=== PATIENT | female | born 1955 | race Caucasian/White ===

== ENCOUNTER 2018-01-20 07:23 | Day surgery (SDC) | payer MEDICAID ==
[~2018-01-20] VITALS: Ht 154.9 cm; Wt 92.5 kg
[~2018-01-20 07:23] MED LIST: CIME400T PO; LEVO50TA8 PO
[2018-01-20] MEDS ORDERED: POVIDONE-IODINE 10% TOPICAL SOLN 240ML TOP ONE (07:30)
[2018-01-20] MEDS ORDERED: CIPROFLOXACIN 0.3% OPHTH SOLN 2.5ML LEFTEYE ONE (07:30)
[2018-01-20] MEDS ORDERED: LACTATED RINGERS 1,000 ML IV SCH (08:40)
[2018-01-20] MEDS ORDERED: METHYLPREDNISOLONE SOD SUCC 40 MG/ML VIAL ONE (09:22)
[2018-01-20] MEDS ORDERED: TOBRAMYCIN SULFATE 80MG/2ML 30ML ONE (09:22)
[2018-01-20] MEDS ORDERED: PROPOFOL 200MG/20ML VIAL IV ONE (09:48)
[2018-01-20] MEDS ORDERED: MIDAZOLAM HCL 2 MG/2 ML VIAL ONE (09:48)
[2018-01-20] MEDS ORDERED: SUCCINYLCHOLINE CHLORIDE 200MG/10ML VIAL IV ONE (09:52)
[2018-01-20] MEDS ORDERED: ACETAMINOPHEN 325MG TABLET PO NR (10:15)
[2018-01-20] MEDS ORDERED: SODIUM CHLORIDE 0.9% 1,000 ML IV ONE (10:15)
[2018-01-20] MEDS ORDERED: ONDANSETRON HCL 4MG/2ML VIAL IV PRN (10:15)
[2018-01-20] MEDS ORDERED: ACETAMINOPHEN WITH CODEINE 300/30MG TABLET PO NR (10:30)
[2018-01-20] MEDS ORDERED: BALANCED SALT IRRIG SOLN 15ML ONE (13:27)
[2018-01-20] MEDS ORDERED: NEO/POLYMYX B SULF/DEXAMETH OPHTH OINT 3.5GM ONE (13:27)
[2018-01-20] MEDS ORDERED: TETRACAINE 0.5% OPHTH DROPS 4ML ONE (13:27)
[2018-01-20] MEDS ORDERED: BUPIVACAINE HCL/PF 0.75% (7.5MG/ML) 10ML ONE (13:27)
[2018-01-20] MEDS ORDERED: CIPROFLOXACIN 0.3% OPHTH SOLN 2.5ML ONE (13:27)
[2018-01-20] MEDS ORDERED: LIDOCAINE HCL 2%/EPINEPHRINE 1:100,000 20 ML VIAL INFIL ONE (13:27)
== END 2018-01-20 11:15 | disposition home or self-care (01) ==
LOC: OR 07:23
PROVIDERS: ATTEND Ophthalmology
DX: H11.002 Unspecified pterygium of left eye (principal); H11.89 Other specified disorders of conjunctiva; E03.9 Hypothyroidism, unspecified; I10 Essential (primary) hypertension; M19.042 Primary osteoarthritis, left hand; M19.041 Primary osteoarthritis, right hand; K21.9 Gastro-esophageal reflux disease without esophagitis; E66.01 Morbid (severe) obesity due to excess calories; Z98.890 Other specified postprocedural states; Z79.899 Other long term (current) drug therapy
CPT/HCPCS: 65420; 88304; J2250; J2920; J3260; J3490; J7120; J0330; J2704